=== PATIENT | male | born 1945 | race Caucasian/White ===

== ENCOUNTER → 2021-04-06 | Outpatient (CLI) | payer MEDICARE, OTHER ==
[~2021-04-06] MED LIST: AMINO ACID PO; AMIODARONE HCL200 MG PO; AMIODARONE HCL400 MG PO; COQ-10100 MG PO; ECOTRIN81 MG PO; ENTRESTO 24 MG1 EACH PO; ISOSORBIDE MONO30 MG PO; MAGNESIUM100 MG PO; METOPROLOL TART25 MG PO; SYNTHROID75 MCG PO; VITAMIN B-12100 MCG PO; VITAMIN E100 UNI2 PO; XARELTO20 MG PO
== END ==
LOC: HEART 5 09:08
DX: I50.9 Heart failure, unspecified (principal); R94.31 Abnormal electrocardiogram [ECG] [EKG]; I48.91 Unspecified atrial fibrillation; Z86.79 Personal history of other diseases of the circulatory system; I08.8 Other rheumatic multiple valve diseases; R93.1 Abnormal findings on diagnostic imaging of heart and coronary circulation
CPT/HCPCS: 78452; 93306; A9502; J2785

== ENCOUNTER → 2021-04-21 | Outpatient (CLI) | payer MEDICARE, OTHER | LOC: EXRD 14:01 | DX: I50.22 Chronic systolic (congestive) heart failure (principal); I42.0 Dilated cardiomyopathy; I48.91 Unspecified atrial fibrillation; R94.39 Abnormal result of other cardiovascular function study | CPT/HCPCS: 71046 ==

== ENCOUNTER → 2021-04-23 | Outpatient (CLI) | payer MEDICARE, OTHER | LOC: CATH 09:35 | DX: I42.0 Dilated cardiomyopathy (principal); I25.10 Atherosclerotic heart disease of native coronary artery without angina pectoris; I48.19 Other persistent atrial fibrillation; I11.0 Hypertensive heart disease with heart failure; I50.22 Chronic systolic (congestive) heart failure; Z86.73 Personal history of transient ischemic attack (TIA), and cerebral infarction without residual deficits; E03.9 Hypothyroidism, unspecified; Z79.01 Long term (current) use of anticoagulants; Z79.899 Other long term (current) drug therapy | CPT/HCPCS: 92960; 93005; 99152; C1769; C1894; J1644; J1742; J2250; J3010; J7030; Q9967 ==

== ENCOUNTER → 2021-07-08 | Outpatient (CLI) | payer MEDICARE, OTHER | LOC: HEART 5 13:14 | DX: I42.9 Cardiomyopathy, unspecified (principal); I27.20 Pulmonary hypertension, unspecified; I08.3 Combined rheumatic disorders of mitral, aortic and tricuspid valves; R94.39 Abnormal result of other cardiovascular function study | CPT/HCPCS: 93306 ==

== ENCOUNTER → 2021-07-09 | Outpatient (CLI) | payer MEDICARE, OTHER ==
[~2021-07-09] MED LIST changes: +CLINDAMYCIN HC300 MG PO; +COQ-1030 MG PO; +DOXYCYCLINE HY100 MG PO; +HYDROCODON-ACE1 EAC4 PO; +LEVOFLOXACIN500 MG PO; -METOPROLOL TART25 MG PO; +PURE TAURINE500 MG PO; +TOPROL XL25 MG PO
[2021-07-09 12:11] LABS: HEMOGLOBIN 14.8 gm/dl (14.0-17.5); RED BLOOD COUNT 4.82 M/UL (4.20-5.50); WHITE BLOOD COUNT 9.7 K/UL (4.5-11.0)
[2021-07-09 12:36] LABS: BUN/CREATININE RATIO 16 (0-10)
== END ==
LOC: LAB 11:18
PROVIDERS: Internal Medicine Cardiovascular Disease
DX: I11.0 Hypertensive heart disease with heart failure (principal); I50.22 Chronic systolic (congestive) heart failure; I48.91 Unspecified atrial fibrillation; I42.9 Cardiomyopathy, unspecified
CPT/HCPCS: 36415; 71046; 80048; 85025

== ENCOUNTER 2021-07-13 07:13 | Outpatient (CLI) | payer MEDICARE, OTHER ==
[~2021-07-13] VITALS: Ht 177.8 cm; Wt 74.8 kg
[~2021-07-13 07:13] MED LIST changes: -CLINDAMYCIN HC300 MG PO; -COQ-1030 MG PO; -DOXYCYCLINE HY100 MG PO; -HYDROCODON-ACE1 EAC4 PO; -LEVOFLOXACIN500 MG PO; -PURE TAURINE500 MG PO; -TOPROL XL25 MG PO
[2021-07-13] MEDS ORDERED: DOXYCYCLINE HY100 MG PO (08:11)
[2021-07-13] MEDS ORDERED: PURE TAURINE500 MG PO (08:12)
[2021-07-13] MEDS ORDERED: COQ-1030 MG PO (08:14)
[2021-07-13] MEDS ORDERED: HYDROCODON-ACE1 EAC4 PO (11:10)
[2021-07-13] MEDS ORDERED: LEVOFLOXACIN500 MG PO (11:10)
[2021-07-13] MEDS ORDERED: CLINDAMYCIN HC300 MG PO (11:10)
[2021-07-13] MEDS ORDERED: TOPROL XL25 MG PO (11:43)
== END 2021-07-14 13:22 | disposition home or self-care (01) ==
LOC: CATH 07:13 → PROG CARE 07:13 → CATH 08:00 → PROG CARE 11:34 → CATH 07-14 13:22
DX: I42.0 Dilated cardiomyopathy (principal); I42.8 Other cardiomyopathies; I11.0 Hypertensive heart disease with heart failure; I50.22 Chronic systolic (congestive) heart failure; I48.19 Other persistent atrial fibrillation; I48.92 Unspecified atrial flutter; I25.10 Atherosclerotic heart disease of native coronary artery without angina pectoris; E03.9 Hypothyroidism, unspecified; Z79.82 Long term (current) use of aspirin; Z79.01 Long term (current) use of anticoagulants; Z79.899 Other long term (current) drug therapy; Z90.49 Acquired absence of other specified parts of digestive tract; Z98.890 Other specified postprocedural states; Z86.73 Personal history of transient ischemic attack (TIA), and cerebral infarction without residual deficits; Z85.46 Personal history of malignant neoplasm of prostate
CPT/HCPCS: 33249; 71045; 92960; 93641; 99152; 99153; C1721; C1777; C1898; J1644; J2250; J2270; J3010; J3370; J7040; J7050; J7070

== ENCOUNTER → 2021-09-14 | Outpatient (CLI) | payer MEDICARE, OTHER ==
[~2021-09-14] MED LIST changes: +CLINDAMYCIN HC300 MG PO; +COQ-1030 MG PO; +DOXYCYCLINE HY100 MG PO; +HYDROCODON-ACE1 EAC4 PO; +LEVOFLOXACIN500 MG PO; +MULTAQ 400 MG400 MG PO; +PURE TAURINE500 MG PO; +TOPROL XL25 MG PO
[2021-09-14 08:17] LABS: HEMOGLOBIN 14.8 gm/dl (14.0-17.5); RED BLOOD COUNT 4.82 M/UL (4.20-5.50); WHITE BLOOD COUNT 7.9 K/UL (4.5-11.0)
== END ==
LOC: CATH 09-06 10:00
PROVIDERS: Internal Medicine Cardiovascular Disease
DX: I48.19 Other persistent atrial fibrillation (principal); I48.92 Unspecified atrial flutter; I50.22 Chronic systolic (congestive) heart failure; I42.0 Dilated cardiomyopathy; I42.8 Other cardiomyopathies; Z95.810 Presence of automatic (implantable) cardiac defibrillator; Z86.73 Personal history of transient ischemic attack (TIA), and cerebral infarction without residual deficits
CPT/HCPCS: 36415; 85027; 92960; 93005; J1200; J1742; J2250; J2310; J3010